=== PATIENT | male | born 1965 | race African-American/Black ===

== ENCOUNTER 2017-09-26 21:25 | Emergency (ER) | payer SELFPAY ==
[~2017-09-26] VITALS: Ht 162.6 cm; Wt 55.2 kg
[~2017-09-26 21:25] MED LIST: ALBU.5I INH; INDO50CA PO; IPRA0.02 INH; PRIMATENE PO; VENTAER INH
[2017-09-26 21:37] VITALS: BP 161/95; PULSE 77; RESP 18; TEMP 99.3; O2SAT 97
[2017-09-26] MEDS ORDERED: IBUP1TAB7 PO (22:31)
--- NOTE | 2017-09-26 22:50 | RADRPT ---
EXAM DATE/TIME: 09/26/2017 22:31 [facility] COMPARISON: No previous studies available for comparison. INDICATIONS : Right hand swelling, no known trauma. MEDICAL HISTORY : Arthritis. Gout. SURGICAL HISTORY : None. ENCOUNTER: Initial ACUITY: 2 weeks PAIN SCORE: 10/10 LOCATION: Right hand. FINDINGS: There is advanced chronic arthropathy of the wrist with marked joint space narrowing, sclerosis, subc hondral cyst formation in carpal crowding with erosive changes present especially at the distal ulna. Also erosions at the metacarpophalangeal joints, especially the second. CONCLUSION: 1. Advanced chronic arthropathy at the right wrist and less severe in the right hand, probably a grade setter hayley inflammatory arthropathy such as rheumatoid. Noe Ornelas MD on September 26, 2017 at 22:47 Board Certified Radiologist. This report was verified electronically.
--- NOTE | 2017-09-26 22:50 | RADRPT ---
EXAM DATE/TIME: 09/26/2017 22:31 [facility] COMPARISON: No previous studies available for comparison. INDICATIONS : Left hand swelling, no known trauma. MEDICAL HISTORY : Arthritis. Gout. SURGICAL HISTORY : None. ENCOUNTER: Initial ACUITY: 3 weeks PAIN SCORE: 10/10 LOCATION: Left hand. FINDINGS: There is advanced arthropathy at the wrist including the radiocarpal joints and intercarpal joints wi th extensive carpal crowding, joint space narrowing, sclerosis and subchondral cystic change. Distal ulna has erosions. CONCLUSION: 1. Advanced arthropathy at the left wrist, probably a chronic inflammatory arthropathy. There is soft tissue swelling at the wrist. Noe Ornelas MD on September 26, 2017 at 22:45 Board Certified Radiologist. This report was verified electronically.
--- NOTE | 2017-09-26 22:54 | PD ---
HPI Chief Complaint: Edema Time Seen by Provider: 21:43 Travel History International Travel<30 days: No Contact w/Intl Traveler<30days: No Traveled to known affect area: No History of Present Illness HPI Is a 52-year-old gentleman with history of arthritis, presents today with complaint worsening arthritic pain of his bilateral hands. 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 He states that at times his wrist become so weak that he feels as though he is given a drop the fries when working. The patient has been treated in the past for arthritis. He states that at one time is put him on indomethacin however he was not able to afford it. He denies any fevers, chills. He reports pain in bilateral wrists and hands. He also reports pain in his ankles and feet. PFSH Past Medical History Arthritis: Yes Asthma: Yes Autoimmune Disease: No Blood Disorders: No Anxiety: No Depression: No Heart Rhythm Problems: No Cancer: No Cardiovascular Problems: Yes (HTN) High Cholesterol: No Chemotherapy: No Chest Pain: No Congestive Heart Failure: No COPD: No Cerebrovascular Accident: No Diabetes: No Diminished Hearing: No Endocrine: No Gastrointestinal Disorders: No GERD: Yes Glaucoma: No Gout: Yes Genitourinary: No Headaches: No Hepatitis: No Hiatal Hernia: No Heparin Induced Thrombocytopen: No Hypertension: Yes Immune Disorder: No Implanted Vascular Access Dvce: No Kidney Stones: No Musculoskeletal: Yes (gout) Neurologic: No Psychiatric: No Reproductive: No Respiratory: Yes Migraines: No Myocardial Infarction: No Radiation Therapy: No Renal Failure: No Seizures: No Sickle Cell Disease: No Sleep Apnea: No Thyroid Disease: No Ulcer: No Past Surgical History Abdominal Surgery: No AICD: No Appendectomy: No Arteriovenous Shunt: No Cardiac Surgery: No Cholecystectomy: No Ear Surgery: No Endocrine Surgery: No Eye Surgery: No Genitourinary Surgery: No Gynecologic Surgery: No Insulin Pump: No Joint Replacement: No Neurologic Surgery: No Oral Surgery: No Pacemaker: No Thoracic Surgery: No Other Surgery: No Social History Alcohol Use: Yes (BEER) Tobacco Use: Yes (< PPD) Substance Use: No Allergies-Medications (Allergen,Severity, Reaction): Coded Allergies: No Known Allergies (Verified Adverse Reaction, Unknown, 09/26/17) Reported Meds & Prescriptions Reported Meds & Active Scripts Active Prednisone 20 Mg Tab 40 Mg PO DAILY 5 Days Take 40 mg (2 tablets) daily for 5 days Indomethacin 50 Mg Cap 50 Mg PO TID 10 Days Take with food, milk, or antacids to decrease stomach adverse effects. Reported Ibuprofen 800 Mg Tab 800 Mg PO Q6HR PRN Review of Systems Except as stated in HPI: all other systems reviewed are Neg General / Constitutional: No: Fever, Chills HENT: No: Headaches, Neck Pain Cardiovascular: No: Chest Pain or Discomfort, Palpitations Respiratory: No: Cough, Shortness of Breath Gastrointestinal: No: Nausea, Vomiting, Abdominal Pain Musculoskeletal: Positive: Limited ROM (Secondary to pain), Pain (Bilateral hands wrists and bilateral feet and ankle), No: Edema Neurologic: Positive: Paresthesia (Of hands at times.) Physical Exam Narrative GENERAL: Well-nourished, well-developed patient, no acute respiratory distress. SKIN: Focused skin assessment warm/dry. HEAD: Normocephalic/atraumatic. EYES: No scleral icterus. No injection or drainage. NECK: Supple, trachea midline. No JVD or lymphadenopathy. CARDIOVASCULAR: Regular rate and rhythm without murmurs, gallops, or rubs. RESPIRATORY: Breath sounds equal bilaterally. No accessory muscle use. GASTROINTESTINAL: Abdomen soft, non-tender, nondistended. MUSCULOSKELETAL: On examination of the patient's bilateral hands. Patient has arthritic changes of his bilateral hands and fingers. There is questionable rheumatoid findings. There are no nodules. He does have a lipoma on the dorsum of his left hand. Patient reports normal sensation over his distal fingertips 5 in each hand. On examination of the patient ankles, there are no bony deformities. He does have tenderness over his MTPs bilaterally. NEUROLOGICAL: Awake and alert. Cranial nerves II through XII intact. Motor grossly within normal limits. Five out of 5 muscle strength in all muscle groups. Normal speech. Data Data Last Documented VS Vital Signs Date Time Temp Pulse Resp B/P (MAP) Pulse Ox O2 Delivery O2 Flow Rate FiO2 09/26/17 22:26 100 Room Air 09/26/17 21:37 99.3 77 18 161/95 (117) Orders Orders Hand, Limited (2vws) (09/26/17 22:24) Hand, Limited (2vws) (09/26/17 22:24) MDM Medical Decision Making Medical Screen Exam Complete: Yes Emergency Medical Condition: Yes Differential Diagnosis Osteoarthritis versus rheumatoid arthritis versus gout Narrative Course 52-year-old male presents today with plaints of bilateral hand and foot and ankle pain. Patient has what appears to be osteoarthritis. Patient does do repetitive movement. He will be started on an anti-inflammatory as well as a short course of steroids. He will be given information on the [facility] for further evaluation and workup. Diagnosis Primary Impression: Acute exacerbation of chronic arthritis of the hands and feet. Additional Impressions: Question rheumatoid arthritis Tobacco use Referrals: [facility] Additional Instructions: Stop smoking. Follow-up with [facility]. Return if feeling worse. Med/Other Pt SpecificInfo: Prescription(s) given Scripts Prednisone (Prednisone) 20 Mg Tab 40 MG PO DAILY for 5 Days, #10 TAB 0 Refills Take 40 mg (2 tablets) daily for 5 days Prov: Trip Plaza MD 09/26/17 Indomethacin (Indomethacin) 50 Mg Cap 50 MG PO TID for 10 Days, CAP 0 Refills Take with food, milk, or antacids to decrease stomach adverse effects. Prov: Trip Plaza MD 09/26/17 Trip Plaza MD Sep 26, 2017 22:54
[2017-09-26] MEDS ORDERED: INDO50CA PO (22:55)
[2017-09-26] MEDS ORDERED: PRED20 PO (22:55)
[2017-09-26 23:23] VITALS: BP 162/88
== END 2017-09-26 23:25 | disposition home or self-care (01) ==
LOC: PHED 21:25
DX: M19.042 Primary osteoarthritis, left hand (principal); M19.041 Primary osteoarthritis, right hand; M19.072 Primary osteoarthritis, left ankle and foot; M19.071 Primary osteoarthritis, right ankle and foot; I10 Essential (primary) hypertension; J45.909 Unspecified asthma, uncomplicated; K21.9 Gastro-esophageal reflux disease without esophagitis; F17.200 Nicotine dependence, unspecified, uncomplicated
CPT/HCPCS: 73120; 99284